=== PATIENT | male | born 1960 | race Caucasian/White ===

== ENCOUNTER 2023-10-09 18:05 | Emergency (ER) | payer SELFPAY ==
[2023-10-09] MEDS ORDERED: predniSONE 20 MG TAB ONE (18:41)
== END 2023-10-09 18:55 | disposition home or self-care (01) ==
LOC: NAV ERS 18:05
DX: M19.031 Primary osteoarthritis, right wrist (principal); F17.210 Nicotine dependence, cigarettes, uncomplicated
CPT/HCPCS: 99283; J7512

== ENCOUNTER 2023-11-20 06:22 | Emergency (ER) | payer SELFPAY ==
[2023-11-20] MEDS ORDERED: Aspirin Chewable 81 MG TAB ONE (06:57)
[2023-11-20 07:03] LABS: #Basophils 0.1 thou/uL (0.0-0.2); #Monocytes 0.7 thou/uL (0.11-0.59); #Neutrophils 7.1 thou/uL (1.40-6.50); %Basophils 0.6 % (0.0-1.0); %Eosinophils 0.2 % (0.0-10.0); %Lymphocytes 19.9 % (21.0-51.0); %Neutrophils 72.3 % (42.0-75.0); Hematocrit 45.5 % (42.0-52.0); Hemoglobin 13.9 g/dL (14.0-18.0); Mean Corpuscular HGB CONC 30.6 g/dL (32.0-36.0); Mean Corpuscular Hemoglobin 29.3 pg (27.0-31.0); Mean Corpuscular Volume 95.9 fl (78.0-98.0); Mean Platelet Volume 7.3 fL (7.4-10.4); Platelet Count 233 10x3/uL (130-400); RBC Distribution Width 15.7 % (11.5-14.5); Red Blood Cell (RBC) Count 4.74 mill/uL (4.70-6.10); White Blood Cell (WBC) Count 9.8 10x3/uL (4.8-10.8)
[2023-11-20 07:19] LABS: ALT (SGPT) 40 U/L (8-55); AST (SGOT) 28 U/L (5-34); Alkaline Phosphatase 89 U/L (40-110); Anion Gap 16 mmol/L (10-20); BUN (Urea Nitrogen) 20 mg/dL (8.4-25.7); Bilirubin, Total 0.8 mg/dL (0.2-1.2); Calc. Creatinine Clearance 0 mL/min (70-130); Calcium 8.9 mg/dL (7.8-10.44); Carbon Dioxide 19 mmol/L (23-31); Chloride 106 mmol/L (98-107); Estimated GFR 78; Glucose 128 mg/dL (80-115); Lipase 24 U/L (8-78); Potassium 4.4 mmol/L (3.5-5.1); Sodium 137 mmol/L (136-145); Troponin I 0.041 ng/mL (< 0.028)
[2023-11-20] MEDS ORDERED: Furosemide 40 MG (4 mL) VIAL ONE (07:33)
[2023-11-20] MEDS ORDERED: Nitroglycerin 2% Ointment 1 INCH/1 GM Packet ONE (07:33)
[2023-11-20] MEDS ORDERED: diphenhydrAMINE 50 MG/ML VIAL ONE (07:52)
[2023-11-20] MEDS ORDERED: Famotidine/PF 20 mg/2ml Vial ONE (07:52)
[2023-11-20] MEDS ORDERED: methylPREDNISolone Sod Succ/PF 125 MG/2 ML VIAL ONE (07:53)
[2023-11-20] MEDS ORDERED: Sodium Chloride 0.9% 500 ML ONE (07:53)
[2023-11-20 08:26] LABS: Bilirubin Negative (Negative); Blood, Urine Small (Negative); Clarity Clear (Clear); Glucose, Urine (Dipstick) Negative (Negative); Ketone, Urine Negative (Negative); Leukocyte Negative (Negative); Nitrite Negative (Negative); Protein, Urine (Dipstick) 30 mg/dL (Neg-Trace); Specific Gravity, Urine 1.015 (1.005-1.030); Urobilinogen 0.2 mg/dL (Less than 2)
[2023-11-20 08:43] LABS: Bacteria/HPF None Seen HPF (None Seen); CAUTI Indications for Culture Dysuria,urgency,freq; RBC/HPF 0-3 HPF (0-3); Squamous Epithelial 0-3 HPF (0-3); WBC/HPF 0-3 HPF (0-3)
[2023-11-20 08:44] LABS: Urine Culture Reflex No No
[2023-11-20 08:52] LABS: SARS-CoV-2 E Target Negative; SARS-CoV-2 N2 Target Negative; SARS-CoV-2 NAA Rapid Test Not Detected (NotDetected); SARS-CoV-2 RdRP gene Negative
[2023-11-20] MEDS ORDERED: Iopamidol 370 76% 100 ML VIAL ONE (09:00)
[2023-11-20 09:47] LABS: Troponin I 0.034 ng/mL (< 0.028)
[2023-11-20 13:42] LABS: Troponin I 0.038 ng/mL (< 0.028)
== END 2023-11-20 16:48 | disposition short-term general hospital (02) ==
LOC: NAV ERS 06:22
DX: I50.9 Heart failure, unspecified (principal); J90 Pleural effusion, not elsewhere classified; R00.0 Tachycardia, unspecified; R33.9 Retention of urine, unspecified; Z87.891 Personal history of nicotine dependence
CPT/HCPCS: 51702; 71275; 80053; 81001; 83605; 83690; 83880; 84484; 85025; 93005; 96374; 96375; J1200; J1940; J2919; J3490; J7030; Q9967; U0002

== ENCOUNTER 2023-12-04 10:43 | Emergency (ER) | payer BC, SELFPAY ==
[2023-12-04] MEDS ORDERED: Tamsulosin HCl 0.4 MG CAP ONE (11:30)
== END 2023-12-04 11:45 | disposition home or self-care (01) ==
LOC: NAV ERS 10:43
DX: R33.9 Retention of urine, unspecified (principal); Z87.891 Personal history of nicotine dependence
CPT/HCPCS: 99283

== ENCOUNTER 2025-03-12 11:27 | Outpatient (CLI) | payer MEDICARE | END 2025-03-12 11:28 | disposition home or self-care (01) | LOC: NAV RAD 11:27 | PROVIDERS: ATTEND Family Medicine | DX: R05.1 Acute cough (principal) | CPT/HCPCS: 71046 ==